=== PATIENT | female | born 1975 | race Two or more races ===

== ENCOUNTER 2024-03-18 21:13 | Inpatient (IN) | payer OTHER ==
--- NOTE | 2024-03-18 21:48 | ED ---
SOB HPI - General Chief Complaint: Shortness of Breath Stated Complaint: COPD Time Seen by Provider: 03/18/24 21:30 Source: patient, EMS Mode of arrival: EMS Limitations: no limitations - History of Present Illness Initial Comments: 49-year-old female who presents to the emergency department as a transfer from [facility]. She was taken in their by EMS for shortness of breath and hypoxia. She has a history of COPD and has not had her medications for months. She moved here from [place]. Pulse ox was 75%. She had wheezing, cough with yellow phlegm production. No fevers. Admits chest pain. Chest x-ray demonstrates diffuse bronchial wall thickening diffuse bronchovascular prominence was given a dose of hydralazine, Toradol, Xopenex, magnesium Zithromax and transferred for higher levels of care. - Related Data Home Medications Medication Instructions Recorded Confirmed Albuterol Sulfate [Ventolin HFA] 2 puff INHALATION RT-QID PRN 03/19/24 03/19/24 Budesonide/Formoterol Fumarate 2 puff INHALATION RT-BID 03/19/24 03/19/24 [Symbicort 160-4.5 Mcg Inhaler] Tiotropium [place] [Spiriva 1 cap INHALATION RT-DAILY 03/19/24 03/19/24 Handihaler] Previous Rx's Medication Instructions Recorded Furosemide [Lasix] 40 mg PO DAILY 30 Days #30 tab 03/22/24 Nicotine 21Mg/24Hr Patch [Habitrol] 1 patch TRANSDERM DAILY 30 Days 03/22/24 #30 patch amLODIPine [Norvasc] 5 mg PO DAILY 30 Days #30 tab 03/22/24 predniSONE See Taper PO DIRECTED 12 Days 03/22/24 #30 tab Allergies Allergy/AdvReac Type Severity Reaction Status Date / Time Penicillins Allergy Severe Anaphylaxis Verified 03/19/24 12:55 Review of Systems ROS Statement: Those systems with pertinent positive or pertinent negative responses have been documented in the HPI. ROS Other: All systems not noted in ROS Statement are negative. Past Medical History Past Medical History: Asthma, Heart Failure, COPD, Hypertension, Rheumatoid Arthritis (RA) Additional Past Medical History / Comment(s): CURRENTLY HAS A COLD. 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 History of Any Multi-Drug Resistant Organisms: None Reported Past Surgical History: Adenoidectomy, Cholecystectomy, Joint Replacement, Orthopedic Surgery, Tonsillectomy, Tubal Ligation Additional Past Surgical History / Comment(s): RIGHT SHOULDER SURGERY. 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 RIGHT ANKLE SURGERY. Additional Past Anesthesia/Blood Transfusion Reaction / Comment(s): STOPPED BREATHING WITH ANESTHETICS? Past Psychological History: Anxiety Smoking Status: Current every day smoker Past Alcohol Use History: None Reported Past Drug Use History: None Reported - Past Family History Mother Family Medical History: Asthma, COPD, Myocardial Infarction ([place]) Brother(s) Family Medical History: Renal Disease General Exam Limitations: no limitations General appearance: alert, in no apparent distress Head exam: Present: atraumatic, normocephalic, normal inspection Eye exam: Present: normal appearance, PERRL, EOMI. Absent: scleral icterus, conjunctival injection, periorbital swelling ENT exam: Present: normal exam, mucous membranes moist Neck exam: Present: normal inspection. Absent: tenderness, meningismus, lymphadenopathy Respiratory exam: Present: normal lung sounds bilaterally, decreased breath sounds. Absent: respiratory distress, wheezes, rales, rhonchi, stridor Cardiovascular Exam: Present: regular rate, normal rhythm, normal heart sounds. Absent: systolic murmur, diastolic murmur, rubs, gallop, clicks GI/Abdominal exam: Present: soft, normal bowel sounds. Absent: distended, tenderness, guarding, rebound, rigid Extremities exam: Present: normal inspection, full ROM, normal capillary refill. Absent: tenderness, pedal edema, joint swelling, calf tenderness Back exam: Present: normal inspection Neurological exam: Present: alert, oriented X3, CN II-XII intact Psychiatric exam: Present: normal affect, normal mood Skin exam: Present: warm, dry, intact, normal color. Absent: rash Course Vital Signs 03/18/24 03/18/24 03/18/24 21:27 21:34 22:18 Temperature 97.8 F Pulse Rate 94 86 87 Respiratory 20 20 20 Rate Blood Pressure 144/85 122/69 150/60 O2 Sat by Pulse 93 L 93 L 93 L Oximetry 03/18/24 22:33 Temperature Pulse Rate 75 Respiratory Rate Blood Pressure O2 Sat by Pulse Oximetry Medical Decision Making - Medical Decision Making Was pt. sent in by a medical professional or institution (, PA, [employer] L[employer], urgent care, hospital, or snf...) When possible be specific @ -Patient was sent in from [facility] Did you speak to anyone other than the patient for history (EMS, parent, family, police, friend...)? What history was obtained from this source @ -I spoke with EMS and the transferring physician in regards to what has been done on the patient Did you review nursing and triage notes (agree or disagree)? Why? @ -I reviewed and agree with nursing and triage notes Were old charts reviewed (outside hosp., previous admission, EMS record, old EKG, old radiological studies, urgent care reports/EKG's, snf records)? Report findings @ -I reviewed the records that were sent with the patient from [facility] Differential Diagnosis (chest pain, altered mental status, abdominal pain women, abdominal pain men, vaginal bleeding, weakness, fever, dyspnea, syncope, headache, dizziness, GI bleed, back pain, seizure, CVA, palpatations, mental h ealth, musculoskeletal)? @ -Differential Dyspnea: Coronary syndrome, arrhythmia, tamponade, asthma, COPD, pulmonary embolism, pneumonia, pneumothorax, pulmonary effusion, anaphylaxis, diabetic ketoacidosis, flailed chest, pulmonary contusion, diaphragmatic rupture, anemia, neuromuscular, this is not meant to be an all-inclusive list. EKG interpreted by me (3pts min.). @ -Not completed X-rays interpreted by me (1pt min.). @ -None done CT interpreted by me (1pt min.). @ -None done U/S interpreted by me (1pt. min.). @ -None done What testing was considered but not performed or refused? (CT, X-rays, U/S, labs)? Why? @ -EKG and chest x-ray were considered however patient already had this done at [facility] What meds were considered but not given or refused? Why? @ -None Did you discuss the management of the patient with other professionals (professionals i.e. , PA, [employer], lab, RT, psych nurse, social service agency director, medical laboratory assistant, teacher, commercial loan collection officer, patient case coordinator)? Give summary @ -Spoke with Dr. Cade for admission Was smoking cessation discussed for >3mins.? @ -No Was critical care preformed (if so, how long)? @ -No Were there social determinants of health that impacted care today? How? (Homelessness, low income, unemployed, alcoholism, drug addiction, transportation, low edu. Level, literacy, decrease access to med. care, ch[facility], rehab)? @ -No Was there de-escalation of care discussed even if they declined (Discuss DNR or withdrawal of care, Hospice)? DNR status @ -No What co-morbidities impacted this encounter? (DM, HTN, Smoking, COPD, CAD, Cancer, CVA, ARF, Chemo, Hep., AIDS, mental health diagnosis, sleep apnea, morbid obesity)? @ -Tobacco abuse, COPD Was patient admitted / discharged? Hospital course, mention meds given and route, prescriptions, significant lab abnormalities, going to OR and other pertinent info. @ -Upon arrival patient seen and evaluated in room 6. Thorough history and physical exam was performed. I did review the transfer packet. Patient will be admitted to Dr. Sexton. Breathing treatments and steroids ordered. I also ordered an echo. Patient awaiting a bed on the floor in stable condition Undiagnosed new problem with uncertain prognosis? @ -No Drug Therapy requiring intensive monitoring for toxicity (Heparin, Nitro, Insulin, Cardizem)? @ -No Were any procedures done? @ -No Diagnosis/symptom? @ -Acute hypoxic respiratory failure, acute exacerbation of COPD Acute, or Chronic, or Acute on Chronic? @ -Acute Uncomplicated (without systemic symptoms) or Complicated (systemic symptoms)? @ -Complicated Side effects of treatment? @ -No Exacerbation, Progression, or Severe Exacerbation? @ -Yes Poses a threat to life or bodily function? How? (Chest pain, [place], [place], pneumonia, PE, COPD, DKA, ARF, appy, cholecystitis, CVA, Diverticulitis, Homicidal, Suicidal, threat to staff... and all critical care pts) @ -Yes as patient was hypoxic - Lab Data Result diagrams: 03/22/24 09:10 03/22/24 09:10 Lab Results 03/19/24 03/19/24 03/19/24 Range/Units 05:07 05:07 05:14 WBC 13.0 H (3.8-10.6) k/uL RBC 5.22 (3.80-5.40) m/uL Hgb 14.3 (11.4-16.0) gm/dL Hct 48.8 H (34.0-46.0) % MCV 93.4 (80.0-100.0) fL MCH 27.5 (25.0-35.0) pg MCHC 29.4 L (31.0-37.0) g/dL RDW 16.1 H (11.5-15.5) % Plt Count 209 (150-450) k/uL MPV 8.9 Absolute Nucleated RBC % Neutrophils % 94 % Lymphocytes % 4 % Monocytes % 2 % Eosinophils % 0 % Basophils % 0 % Neutrophils # 12.2 H (1.3-7.7) k/uL Lymphocytes # 0.5 L (1.0-4.8) k/uL Monocytes # 0.2 (0-1.0) k/uL Eosinophils # 0.1 (0-0.7) k/uL Basophils # 0.1 (0-0.2) k/uL NRBC/100 WBC Diff (0.00-0.01) X 10*3/uL Hypochromasia Marked Anisocytosis Slight Sodium 138 (137-145) mmol/L Potassium 5.2 H (3.5-5.1) mmol/L Chloride 104 (98-107) mmol/L Carbon Dioxide 29 (22-30) mmol/L Anion Gap 5 mmol/L BUN 15 (7-17) mg/dL Creatinine 0.59 (0.52-1.04) mg/dL Est GFR (CKD-EPI) (>=60) Est GFR (CKD-EPI)AfAm >90 (>60 ml/min/1.73 sqM) Est GFR (CKD-EPI)NonAf >90 (>60 ml/min/1.73 sqM) BUN/Creatinine Ratio (12.00-20.00) Ratio Glucose 131 H (74-99) mg/dL Calcium 8.5 (8.4-10.2) mg/dL Magnesium (1.5-2.4) mg/dL Procalcitonin 0.08 (0.02-0.09) ng/mL 03/20/24 03/20/24 03/20/24 Range/Units 05:03 05:03 11:06 WBC 15.34 H (3.8-10.6) k/uL RBC 5.20 (3.80-5.40) m/uL Hgb 14.1 (11.4-16.0) gm/dL Hct 50.9 H (34.0-46.0) % MCV 97.9 H (80.0-100.0) fL MCH 27.1 (25.0-35.0) pg MCHC 27.7 L (31.0-37.0) g/dL RDW 17.2 H (11.5-15.5) % Plt Count 211 (150-450) k/uL MPV 11.5 Absolute Nucleated RBC 0.50 % Neutrophils % % Lymphocytes % % Monocytes % % Eosinophils % % Basophils % % Neutrophils # (1.3-7.7) k/uL Lymphocytes # (1.0-4.8) k/uL Monocytes # (0-1.0) k/uL Eosinophils # (0-0.7) k/uL Basophils # (0-0.2) k/uL NRBC/100 WBC Diff 0.08 H (0.00-0.01) X 10*3/uL Hypochromasia Anisocytosis Sodium 138 (137-145) mmol/L Potassium 6.1 A* 5.9 H (3.5-5.1) mmol/L Chloride 99 (98-107) mmol/L Carbon Dioxide 31.1 (22-30) mmol/L Anion Gap 7.90 mmol/L BUN 17.6 (7-17) mg/dL Creatinine 0.6 (0.52-1.04) mg/dL Est GFR (CKD-EPI) 111 (>=60) Est GFR (CKD-EPI)AfAm (>60 ml/min/1.73 sqM) Est GFR (CKD-EPI)NonAf (>60 ml/min/1.73 sqM) BUN/Creatinine Ratio 29.33 H (12.00-20.00) Ratio Glucose 140 H (74-99) mg/dL Calcium 9.0 (8.4-10.2) mg/dL Magnesium 2.3 (1.5-2.4) mg/dL Procalcitonin (0.02-0.09) ng/mL Disposition Clinical Impression: COPD (chronic obstructive pulmonary disease), Hypoxia Disposition: ADMITTED IP TO THIS [facility] Condition: Stable Is patient prescribed a controlled substance at d/c from ED?: No Time of Disposition: 22:18 Decision to Admit Reason: Admit from EC Decision Date: 03/18/24 Decision Time: 22:18
[2024-03-18] MEDS ORDERED: NALOXONE 0.4 MG/ML 1 ML VIAL IV PRN (22:18)
[2024-03-18] MEDS: IPRATROPIUM-ALBUTEROL 3 ML NEB INHALATION STA (22:18)
[2024-03-18] MEDS ORDERED: IPRATROPIUM-ALBUTEROL 3 ML NEB INHALATION PRN (23:51)
--- NOTE | 2024-03-18 23:59 | P.HPIM ---
History of Present Illness H&P Date: 03/18/24 Chief Complaint: Shortness of breath 49-year-old female with COPD on 4 L oxygen, lupus, narcolepsy Patient was transferred from [facility] to our facility for management of COPD exacerbation. Patient reports 3-day history of progressive shortness of breath and increased sleepiness. Denies any fevers or chills, denies any recent travel, denies any known sick contacts. She lost follow-up with her PCP due to missing an appointment and being discharged from her care, which led to running out of her medications she cannot find a new PCP she has been out of all her medications for over a month now. She had some leftover inhalers that she has been using however was not much beneficial today She reports shortness of breath with minimal exertion she denies any cardiac history. Denies any swelling in the legs. She reports history of narcolepsy with increased sleepiness over the past few days today she felt very short of breath and cannot maintain alertness and wakefulness for which EMS was notified upon their arrival the documented oxygen saturation of 75% despite supplemental oxygen for which she was transferred to our facility [facility] for further care Patient does admit to ongoing smoking denies any illicit drugs or heavy alcohol At time of my evaluation patient feels better she is sitting comfortable in bed fully awake and alert denies any chest pain or trouble breathing at this time review of systems Pertinent positives as noted in HPI. All other systems were reviewed and are negative on exam Constitutional: No acute distress, morbidly obese Eyes: Anicteric sclerae, moist conjunctiva, Pupils equal round reactive to light ENMT: NC/AT Oropharynx clear, no erythema, or exudates Neck: Supple, no masses, or JVD No carotid bruits No thyromegaly Lungs: Clear to auscultation Clear to percussion Normal respiratory effort, no accessory muscle use Cardiovascular: Heart regular in rate and rhythm, No murmurs, gallops, or rubs No peripheral edema Abdominal: Soft Nontender, no guarding, rebound or rigidity Abdomen moving with respiration Normoactive bowel sounds Extremities: No digital cyanosis No clubbing Pedal pulses intact and symmetrical Radial pulses intact and symmetrical No calf tenderness Psychiatric: Alert and oriented to person, place and time Appropriate affect fair judgement Neuro Muscles Strength 4/5 in all 4 extremities Sensation to light touch grossly present throughout Cranial nerves II-XII grossly intact Past Medical History Past Medical History: Asthma, Cancer, Heart Failure, COPD, Hypertension, Liver Disease, Rheumatoid Arthritis (RA) Additional Past Medical History / Comment(s): CURRENTLY HAS A COLD. 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 possible ovarian cancer, patient unsure. fatty liver. Lupus. one kidney History of Any Multi-Drug Resistant Organisms: None Reported Past Surgical History: Adenoidectomy, Cholecystectomy, Joint Replacement, Orthopedic Surgery, Tonsillectomy, Tubal Ligation Additional Past Surgical History / Comment(s): RIGHT SHOULDER SURGERY. 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 RIGHT ANKLE SURGERY. Additional Past Anesthesia/Blood Transfusion Reaction / Comment(s): STOPPED BREATHING WITH ANESTHETICS? Past Psychological History: Anxiety Additional Psychological History / Comment(s): "NERVOUS AROUND PEOPLE I DON'T KNOW". Smoking Status: Current every day smoker Past Alcohol Use History: None Reported Past Drug Use History: None Reported - Past Family History Mother Family Medical History: Asthma, COPD, Myocardial Infarction ([place]) Brother(s) Family Medical History: Renal Disease Medications and Allergies Home Medications Medication Instructions Recorded Confirmed Type Albuterol Nebulized [Ventolin 2.5 mg INHALATION TID 02/17/16 02/17/16 History Nebulized] Hydrocodone/Acetaminophen [Powell 1 tab PO DIRECTED 02/17/16 02/17/16 History 10-325] Ibuprofen [Motrin] 600 mg PO DIRECTED PRN 02/17/16 02/17/16 History clonazePAM [Clonazepam] 1 mg PO BID 02/17/16 02/17/16 History methocarbamoL [Robaxin] 1,500 mg PO BID 02/17/16 02/17/16 History Allergies Allergy/AdvReac Type Severity Reaction Status Date / Time Penicillins Allergy Severe Anaphylaxis Verified 03/18/24 21:35 Physical Exam Vitals: Vital Signs Temp Pulse Resp BP Pulse Ox 03/18/24 22:33 75 03/18/24 22:18 87 20 150/60 93 L 03/18/24 21:34 86 20 122/69 93 L 03/18/24 21:27 97.8 F 94 20 144/85 93 L Intake and Output 03/18/24 03/18/24 03/19/24 14:59 22:59 06:59 Other: Weight 161.025 kg 161.025 kg Thrombosis Risk Factor Assmnt - Choose All That Apply Each Factor Represents 1 point: Abnormal pulmonary function (COPD), Age 41-60 years, Obesity (BMI >25) Thrombosis Risk Factor Assessment Total Risk Factor Score: 3 Thrombosis Risk Factor Assessment Level: Moderate Risk Assessment and Plan Assessment: 49-year-old female COPD on 4 L nasal cannula coming in due to worsening shortness of breath she has been out of all her medications for about a month now was transferred to our facility from [facility] for further care I discussed the case with ED doctor and accepted the admission for acute COPD exacerbation with anticipated length of stay more than 2 midnights Acute on chronic hypoxic respiratory failure Acute COPD exacerbation ABG was not documented at the other facility Patient is fully alert and awake at time of my evaluation Continue supplemental oxygen Continue with Symbicort twice daily DuoNebs scheduled and as needed IV systemic steroids with Solu-Medrol 40 mg IV push every 8 hours Patient was started on antibiotic at [facility] with Rocephin and azithromycin due to suspicious changes on chest x-ray for possible pneumonia Continue to monitor vital signs Afebrile White count 12.2 Hypertension Verify home medications Blood pressure controlled at this time History of narcolepsy Patient fully awake at time of my evaluation Verify home medications Blood work from [facility] showing white count 12.2 hemoglobin 14.6 Sodium 142 potassium 4.1 BUN 13 creatinine 0.8 Troponin is negative BMP negative Full code DVT prophylaxis heparin subcu 3 times daily
[2024-03-19] MEDS: MORPHINE SULFATE 4 MG/ML SYRINGE IV PRN (00:14)
[2024-03-19] MEDS: HEPARIN SODIUM,PORCINE 5,000 UNIT/ML 1 ML VIAL SQ SCH (00:16)
[2024-03-19] MEDS: IPRATROPIUM-ALBUTEROL 3 ML NEB INHALATION SCH ×2 (00:25→08:45)
[2024-03-19 05:35] LABS: Anisocytosis Slight; Basophils # (A) 0.1 k/uL (0-0.2); Basophils % (A) 0 %; Eosinophils # (A) 0.1 k/uL (0-0.7); Eosinophils % (A) 0 %; HCT 48.8 % (34.0-46.0); HGB 14.3 gm/dL (11.4-16.0); Hypochromasia Marked; Lymphocytes # (A) 0.5 k/uL (1.0-4.8); Lymphocytes % (A) 4 %; MCH 27.5 pg (25.0-35.0); MCHC 29.4 g/dL (31.0-37.0); MCV 93.4 fL (80.0-100.0); Mean Platelet Volume 8.9; Monocytes # (A) 0.2 k/uL (0-1.0); Monocytes % (A) 2 %; Neutrophils # (A) 12.2 k/uL (1.3-7.7); Neutrophils % (A) 94 %; Platelet Count 209 k/uL (150-450); RBC 5.22 m/uL (3.80-5.40); RDW 16.1 % (11.5-15.5)
[2024-03-19 05:51] LABS: African American GFR (CKD) >90 (>60 ml/min/1.73 sqM); Anion Gap 5 mmol/L; Blood Urea Nitrogen 15 mg/dL (7-17); Calcium 8.5 mg/dL (8.4-10.2); Carbon Dioxide 29 mmol/L (22-30); Chloride 104 mmol/L (98-107); Glucose 131 mg/dL (74-99); Non-African American GFR(CKD) >90 (>60 ml/min/1.73 sqM); Potassium 5.2 mmol/L (3.5-5.1); Sodium 138 mmol/L (137-145)
[2024-03-19] MEDS: BENZONATATE 100 MG CAP PO PRN (08:19)
[2024-03-19] MEDS: methylPREDNISolone SOD SUCCI 40 MG/ML 1 ML VIAL IV SCH (08:20)
[2024-03-19] MEDS: NICOTINE 21MG/24HR PATCH TRANSDERM SCH (08:20)
[2024-03-19] MEDS: SYMBICORT 160-4.5 MCG INHALER INHALATION SCH (08:45)
--- NOTE | 2024-03-19 08:51 | P.CNPUL ---
History of Present Illness Consult date: 03/19/24 Requesting physician: Sue Cade Reason for consult: dyspnea, cough, COPD, hypoxemia, obstructive sleep apnea Chief complaint: Shortness of breath. History of present illness: Pulmonary/critical care consult dated March 19, 2024. 49-year-old female who was transferred from [facility], for shortness of breath. She was seen in the emergency department, on March 18, at about 9:15 o'clock. This was on March 18. The patient came in with complaints of shortness of breath, and states that she could not breathe. She apparently recently moved here from [place], and has no physician in the area. She also apparently has been running out of her usual medications. The patient tells us that she has a history of COPD, chronic hypoxemic respiratory failure, on home oxygen of 4 L, ongoing tobacco use, for 30 years, hypertension, obesity, and narcolepsy. The patient was initially on CPAP, and has a trilogy noninvasive ventilator at home. Her complaints include primarily shortness of breath. She really denied other complaints. She had no inhalers, or medication for her nebulizer machine. Laboratory data includes a white count 13, hemoglobin 14.3, hematocrit 48.8, and a platelet count of 209,000. Sodium 138, potassium 5.2, chlorides 104, CO2 29, BUN 15, creatinine 0.59. Glucose was 131. Calcium was normal. No chest x-ray to review. The patient is sitting up in bed. She is currently on 4 L which is what she uses at home. Review of Systems REVIEW OF SYSTEMS: CONSTITUTIONAL: [Negative.] NEUROLOGIC: [ Negative.] HEENT: [ Negative.] CARDIAC: [Negative.] PULMONARY: Shortness of breath. GI: [Negative.] : [Negative.] RHEUMATOLOGIC: [ Negative.] IMMUNOLOGIC: [ Negative.] ENDOCRINE: [Negative. ] DERMATOLOGIC: [Negative.] Past Medical History Past Medical History: Asthma, Cancer, Heart Failure, COPD, Hypertension, Liver Disease, Rheumatoid Arthritis (RA) Additional Past Medical History / Comment(s): CURRENTLY HAS A COLD. 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 possible ovarian cancer, patient unsure. fatty liver. Lupus. one kidney History of Any Multi-Drug Resistant Organisms: None Reported Past Surgical History: Adenoidectomy, Cholecystectomy, Joint Replacement, Orthopedic Surgery, Tonsillectomy, Tubal Ligation Additional Past Surgical History / Comment(s): RIGHT SHOULDER SURGERY. 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 RIGHT ANKLE SURGERY. Additional Past Anesthesia/Blood Transfusion Reaction / Comment(s): STOPPED BREATHING WITH ANESTHETICS? Past Psychological History: Anxiety Additional Psychological History / Comment(s): "NERVOUS AROUND PEOPLE I DON'T KNOW". Smoking Status: Current every day smoker Past Alcohol Use History: None Reported Past Drug Use History: None Reported - Past Family History Mother Family Medical History: Asthma, COPD, Myocardial Infarction ([place]) Brother(s) Family Medical History: Renal Disease Medications and Allergies Home Medications Medication Instructions Recorded Confirmed Type Albuterol Nebulized [Ventolin 2.5 mg INHALATION TID 02/17/16 02/17/16 History Nebulized] Hydrocodone/Acetaminophen [[place]urchard 1 tab PO DIRECTED 02/17/16 02/17/16 History 10-325] Ibuprofen [Motrin] 600 mg PO DIRECTED PRN 02/17/16 02/17/16 History clonazePAM [Clonazepam] 1 mg PO BID 02/17/16 02/17/16 History methocarbamoL [Robaxin] 1,500 mg PO BID 02/17/16 02/17/16 History Allergies Allergy/AdvReac Type Severity Reaction Status Date / Time Penicillins Allergy Severe Anaphylaxis Verified 03/18/24 21:35 Physical Exam Osteopathic Statement: *. No significant issues noted on an osteopathic structural exam other than those noted in the History and Physical/Consult. Vitals: Vital Signs Temp Pulse Pulse Resp BP BP Pulse Ox 03/19/24 07:00 98.1 F 109 H 20 162/84 93 L 03/19/24 03:19 03/19/24 02:08 97.4 F L 79 20 118/69 94 L 03/19/24 00:44 03/19/24 00:28 76 03/18/24 22:33 75 03/18/24 22:18 87 20 150/60 93 L 03/18/24 21:34 86 20 122/69 93 L 03/18/24 21:27 97.8 F 94 20 144/85 93 L FiO2 03/19/24 07:00 03/19/24 03:19 40 03/19/24 02:08 03/19/24 00:44 40 03/19/24 00:28 03/18/24 22:33 03/18/24 22:18 03/18/24 21:34 03/18/24 21:27 Intake and Output 03/18/24 03/19/24 03/19/24 22:59 06:59 14:59 Other: # Voids 3 Weight 161.025 kg 161.025 kg No acute distress, oriented 3. Currently on 4 L. No audible wheezing. No conversational dyspnea. No use of accessory muscles. HEENT examination is grossly unremarkable. Mucous membranes are moist. No oral lesions. Neck supple. Full range of motion. No adenopathy thyromegaly or neck vein distention. Cardiovascular examination reveals regular rhythm rate. S1-S2 normal. No S3 or S4. No discernible murmur noted. Heart sounds are distant. Heart rate 83 bpm. Lungs reveal mostly clear breath sounds. Minimal rhonchi. No wheezes or crackles. Breath sounds equal bilaterally. 4 L saturation is 94%. Abdomen soft with bowel sounds. No masses or tenderness. Extremities are intact. No cyanosis clubbing or edema. Skin is without rash or lesion. Neurologic examination is brief but nonfocal. Results - Laboratory Findings CBC and BMP: 03/19/24 05:07 03/19/24 05:07 Abnormal lab findings: Abnormal Labs 03/19/24 03/19/24 05:07 05:07 WBC 13.0 H Hct 48.8 H MCHC 29.4 L RDW 16.1 H Neutrophils # 12.2 H Lymphocytes # 0.5 L Potassium 5.2 H Glucose 131 H Assessment and Plan Assessment: Acute hypoxemic respiratory failure, likely secondary to COPD exacerbation. Chronic hypoxemic respiratory failure on home O2 at 4 L. History of narcolepsy. History of sleep apnea syndrome. History of hypertension. History of obesity. History of ongoing tobacco use for the last 30 years. Plan: Plan dated March 19, 2024. The patient is currently on DuoNebs, 4 times daily and as needed. She is also getting Tessalon Perles, Symbicort, Rocephin, azithromycin, and Solu-Medrol. The Patient Is Sitting up in Bed. She Looks Relatively Stable. She Feels Much Better. A procalcitonin level is ordered. If it is normal, antibiotics could be discontinued. Labs are reviewed. They look relatively normal. We will continue to follow make recommendations along the way. Prognosis is guarded. The patient does need to establish yourself with a family doctor in this area. She apparently has run out of multiple medications. Time with Patient: Greater than 30
[2024-03-19] MEDS ORDERED: cefTRIAXone IN SWFI 1,000 MG/10 ML SYRINGE IVP SCH (09:00)
--- NOTE | 2024-03-19 09:35 | P.PN ---
Subjective Progress Note Date: 03/19/24 Hospital course: Patient is a pleasant 49-year-old female with a past medical history of COPD home oxygen dependent on 4 L and continued nicotine dependence, lupus, and narcolepsy. She presented to our facility on 03/18/2024 as a transfer from [facility] where she presented with increasing shortness of breath and was reportedly found to have an SpO2 of 75% on her baseline supplemental oxygen and was then transferred to our facility secondary to COPD exacerbation. Chest x-ray at previous facility reported diffuse bronchial wall thickening with diffuse bronchovascular prominence. Upon arrival to our facility patient underwent evaluation in the emergency department. Vital signs upon arrival show blood pressure 144/85, heart rate 94, respiratory rate 20, temp 97.8 F, and SpO2 of 93% on 4 L. Labs were completed and reviewed. CBC showing leukocytosis with WBC count of 13.0 and elevated hematocrit of 48.8. BMP revealing mild hyperkalemia with potassium of 5.2 and hyperglycemia with glucose of 131. Patient was admitted under our services with consultation to pulmonology. Physical exam: Vital signs reviewed and stable. General: Nontoxic, no distress and appears stated age. Morbidly obese. Derm: Skin warm and dry, normal coloration for ethnicity. Head: Atraumatic, normocephalic and symmetric. Eyes: EOMs intact, no lid lag, and anicteric sclera Mouth: no lip lesions, mucus membranes moist Cardiovascular: regular rate and rhythm with normal S1S2, no murmur, positive posterior tibial pulses bilaterally, and cap refill < 2 seconds. Lungs: Respirations even, regular, and unlabored on supplemental oxygen. Lungs diminished with soft expiratory wheezes in upper lobes otherwise no rhonchi, rales, or crackles noted. Abdominal: Obese abdomen, soft, nontender to palpation, no guarding, no appreciable organomegaly Ext: ROM intact. No gross muscle atrophy, no edema, no contractures Neuro: Speech clear, face symmetrical and CN II-XII grossly intact with no noted focal neuro deficits Psych: Alert and oriented to person, place, time, and situation. Appropriate and pleasant affect. Assessment and Plan of Care: COPD with acute exacerbation Acute on chronic respiratory failure, secondary to above Continued nicotine dependence -Consult to Pulmonology -Oxygenation to be administered and titrated as needed to maintain SPO2 equal to or greater than 90% -Telemetry monitoring. -Monitor pulse-oximetry -Duonebs scheduled 4 times daily and as needed for SOB and/or wheezing -Symbicort 160-4.5 mcg inhaler 2 puffs twice daily -Incentive Spirometry -Steroids: Solu-Medrol 40 mg IVP every 8 hours -Antibiotics: Azithromycin 500 mg daily x 3 days and Rocephin 1 g daily. Procalcitonin was ordered and we will follow-up with results. -Strongly recommend smoking cessation, order placed for nicotine patch 21 mg daily. Data and imaging reviewed: Labs were completed and reviewed. CBC showing leukocytosis with WBC count of 13.0 and elevated hematocrit of 48.8. BMP revealing mild hyperkalemia with potassium of 5.2 and hyperglycemia with glucose of 131. Vital signs reviewed. Blood pressure 162/84, heart rate 109, respiratory rate 20, temp 98.1 F, and SpO2 of 93% on 4 L.. CODE STATUS full code DVT prophylaxis: Heparin Anticipated discharge date: Likely within the next [address]: Home Patient was seen independently by Nurse Pracitioner. This document was prepared using [employer] dictation software. Please allow for errors in supermarket manager, while rare they do occur. Elder Noyola NP rendered care for this patient independently, reviewed the findings and plan as documented in the note above. I did not physically speak with or examine the patient on this date. Objective - Vital Signs Vital signs: Vital Signs Temp 97.4 F L 03/19/24 02:08 Pulse 79 03/19/24 02:08 Resp 20 03/19/24 02:08 BP 118/69 03/19/24 02:08 Pulse Ox 94 L 03/19/24 02:08 FiO2 40 03/19/24 03:19 Intake & Output 03/18/24 03/19/24 03/19/24 18:59 06:59 18:59 Weight 161.025 kg Other: # Voids 3 - Labs CBC & Chem 7: 03/20/24 05:03 03/20/24 11:06 Labs: Abnormal Lab Results - Last 24 Hours (Table) 03/19/24 03/19/24 Range/Units 05:07 05:07 WBC 13.0 H (3.8-10.6) k/uL Hct 48.8 H (34.0-46.0) % MCHC 29.4 L (31.0-37.0) g/dL RDW 16.1 H (11.5-15.5) % Neutrophils # 12.2 H (1.3-7.7) k/uL Lymphocytes # 0.5 L (1.0-4.8) k/uL Potassium 5.2 H (3.5-5.1) mmol/L Glucose 131 H (74-99) mg/dL
[2024-03-19] MEDS: AZITHROMYCIN 500 MG in SODIUM CHLORIDE 0.9% 250 ML IVPB SCH (11:00)
[2024-03-19] MEDS: ACETAMINOPHEN TAB 325 MG TAB PO PRN (17:30)
[2024-03-19] MEDS: ONDANSETRON 4 MG/2 ML VIAL IVP PRN (23:30)
[2024-03-20 09:14] LABS: Magnesium 2.3 mg/dL (1.5-2.4)
[2024-03-20 09:41] LABS: HCT 50.9 % (37.2-46.3); HGB 14.1 g/dL (12.0-15.0); MCH 27.1 pg (27.0-32.0); MCHC 27.7 g/dL (32.0-37.0); MCV 97.9 FL (80.0-97.0); Mean Platelet Volume 11.5 FL (9.5-12.2); NRBC Per 100 WBC 0.08 X 10*3/uL (0.00-0.01); Platelet Count 211 X 10*3/uL (140-440); RDW 17.2 % (11.5-14.5); WBC 15.34 X 10*3/uL (4.50-10.00)
[2024-03-20 09:42] LABS: BUN/Creat Ratio 29.33 Ratio (12.00-20.00); Blood Urea Nitrogen 17.6 mg/dL (9.0-27.0); Carbon Dioxide 31.1 mmol/L (21.6-31.8); Chloride 99 mmol/L (96-109); Glucose 140 mg/dL (70-110); Potassium 6.1 mmol/L (3.5-5.5); Sodium 138 mmol/L (135-145)
[2024-03-20] MEDS ORDERED: DEXTROSE 50% SYRINGE 50 ML IVP PRN ×2 (10:09)
--- NOTE | 2024-03-20 10:49 | P.PN ---
Subjective Progress Note Date: 03/20/24 Hospital course: Patient is a pleasant 49-year-old female with a past medical history of COPD home oxygen dependent on 4 L and continued nicotine dependence, lupus, and narcolepsy. She presented to our facility on 03/18/2024 as a transfer from [facility] where she presented with increasing shortness of breath and was reportedly found to have an SpO2 of 75% on her baseline supplemental oxygen and was then transferred to our facility secondary to COPD exacerbation. Chest x-ray at previous facility reported diffuse bronchial wall thickening with diffuse bronchovascular prominence. Upon arrival to our facility patient underwent evaluation in the emergency department. Vital signs upon arrival show blood pressure 144/85, heart rate 94, respiratory rate 20, temp 97.8 F, and SpO2 of 93% on 4 L. Labs were completed and reviewed. CBC showing leukocytosis with WBC count of 13.0 and elevated hematocrit of 48.8. BMP revealing mild hyperkalemia with potassium of 5.2 and hyperglycemia with glucose of 131. Patient was admitted under our services with consultation to pulmonology. Physical exam: Vital signs reviewed and stable. General: Nontoxic, no distress and appears stated age. Morbidly obese. Derm: Skin warm and dry, normal coloration for ethnicity. Head: Atraumatic, normocephalic and symmetric. Eyes: EOMs intact, no lid lag, and anicteric sclera Mouth: no lip lesions, mucus membranes moist Cardiovascular: regular rate and rhythm with normal S1S2, no murmur, positive posterior tibial pulses bilaterally, and cap refill < 2 seconds. Lungs: Respirations even, regular, and unlabored on supplemental oxygen. Lungs diminished with soft expiratory wheezes in upper lobes otherwise no rhonchi, rales, or crackles noted. Abdominal: Obese abdomen, soft, nontender to palpation, no guarding, no appreciable organomegaly Ext: ROM intact. No gross muscle atrophy, no edema, no contractures Neuro: Speech clear, face symmetrical and CN II-XII grossly intact with no noted focal neuro deficits Psych: Alert and oriented to person, place, time, and situation. Appropriate and pleasant affect. Assessment and Plan of Care: COPD with acute exacerbation Acute on chronic respiratory failure, secondary to above Continued nicotine dependence -Pulmonary following, reviewed documentation in chart -Oxygenation to be administered and titrated as needed to maintain SPO2 equal to or greater than 90% -Telemetry monitoring. -Monitor pulse-oximetry -Duonebs scheduled 4 times daily and as needed for SOB and/or wheezing -Symbicort 160-4.5 mcg inhaler 2 puffs twice daily -Incentive Spirometry -Steroids: Solu-Medrol 40 mg IVP every 8 hours -Antibiotics: Azithromycin 500 mg daily x 3 days and Rocephin 1 g daily. -Strongly recommend smoking cessation, order placed for nicotine patch 21 mg daily. Hyperkalemia, unclear etiology possibly secondary to heparin-induced hypoaldosteronism vs unexplained hyperkalemia secondary to systemic lupus erythematous Systemic Lupus Erythematous -Hyperkalemia of unclear etiology possibly secondary to unexplained hyperkalemia resulting from systemic lupus erythematous vs heparin-induced hypoaldosteronism, however sodium levels are stable at 138 and blood pressure is elevated at 169/97. -Subcutaneous heparin discontinued, DVT prophylaxis with SCDs and NATASHA hose at this time. -Order placed for hyperkalemia cocktail with Lokelma 10 mg p.o. x 1 dose, calcium gluconate 2 g IVPB, and insulin 10 units IVP with 1 amp D50. We will repeat potassium levels to monitor for improvement/resolution of hyperkalemia -Order placed for EKG, monitor for peaked P waves -Order placed for nephrology consult for further evaluation of hyperkalemia secondary to unclear cause Data and imaging reviewed: Labs were completed and reviewed. CBC showing leukocytosis with WBC count of 15.34, elevated hematocrit of 50.9 and MCV of 97.9. BMP showing hyperkalemia with potassium of 6.1 and not a hemolyzed specimen. Renal function was unremarkable with BUN of 17.6, creatinine 0.6, GFR of 111. Blood glucose 140. Magnesium normal findings at 2.3 and calcium normal at 9.0. Procalcitonin was negative at 0.08. Vital signs reviewed. Blood pressure 169/97, heart rate 116, respiratory rate 19, temp 97.2 F, and SpO2 of 92% on 4 L. CODE STATUS full code DVT prophylaxis: Heparin Anticipated discharge date: Pending clinical course Anticipated discharge place: Home Patient was seen independently by Nurse Pracitioner. This document was prepared using [employer] dictation software. Please allow for errors in gymnastics coach, while rare they do occur. Elder Noyola NP rendered care for this patient independently, reviewed the findings and plan as documented in the note above. I did not physically speak with or examine the patient on this date. Objective - Vital Signs Vital signs: Vital Signs Temp 97.5 F L 03/20/24 01:11 Pulse 104 H 03/20/24 01:11 Resp 20 03/19/24 17:58 BP 147/87 03/20/24 01:11 Pulse Ox 97 03/20/24 01:11 FiO2 40 03/20/24 00:20 Intake & Output 03/19/24 03/20/24 03/20/24 18:59 06:59 18:59 Other: Voiding Method Bedside Commode Bedside Commode # Voids 3 2 - Labs CBC & Chem 7: 03/20/24 05:03 03/20/24 11:06
[2024-03-20] MEDS: SODIUM ZIRCONIUM CYCLOSILICATE 10 GM PACKET PO ONE (13:04)
[2024-03-20] MEDS: DEXTROSE 50% SYRINGE 50 ML IVP STA (13:06)
[2024-03-20] MEDS: INSULIN REGULAR 100 UNIT/ML VIAL (IV) IV ONE (13:11)
[2024-03-20] MEDS: CALCIUM GLUCONATE IN NACL 2 GM in SALINE 1 100ML.BAG IVPB ONE (13:41)
[2024-03-20] MEDS: amLODIPine 5 MG TAB PO SCH (13:44)
[2024-03-20 14:35] LABS: Glucose,Whole Blood 84 mg/dL (70-110)
--- NOTE | 2024-03-20 15:03 | P.NPCON ---
History of Present Illness - Reason for Consult hyperkalemia - History of Present Illness patient is a 49-year-old female with history of COPD maintained on home oxygen, diagnoses of SLE about 2 years ago. Patient does not follow with rheumatology yet. Patient is admitted to the hospital with complaints of shortness of breath. Currently being treated for acute exacerbation of COPD. serum potassium was elevated at 6.1 this morning. Patient received IV treatment for hyperkalemia and repeat potassium was 5.9. Blood sugars are not elevated. Serum creatinine at 0.59.patient states she has been voiding. Patient had been on subcutaneous heparin which is now discontinued. No reports of severe constipation. Review of Systems as per HPI Past Medical History Past Medical History: Asthma, Cancer, Heart Failure, COPD, Hypertension, Liver Disease, Rheumatoid Arthritis (RA) Additional Past Medical History / Comment(s): CURRENTLY HAS A COLD. 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 possible ovarian cancer, patient unsure. fatty liver. Lupus. one kidney History of Any Multi-Drug Resistant Organisms: None Reported Past Surgical History: Adenoidectomy, Cholecystectomy, Joint Replacement, Orthopedic Surgery, Tonsillectomy, Tubal Ligation Additional Past Surgical History / Comment(s): RIGHT SHOULDER SURGERY. 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 RIGHT ANKLE SURGERY. Additional Past Anesthesia/Blood Transfusion Reaction / Comment(s): STOPPED BREATHING WITH ANESTHETICS? Past Psychological History: Anxiety Additional Psychological History / Comment(s): "NERVOUS AROUND PEOPLE I DON'T KNOW". Smoking Status: Current every day smoker Past Alcohol Use History: None Reported Past Drug Use History: None Reported - Past Family History Mother Family Medical History: Asthma, COPD, Myocardial Infarction (CT) Brother(s) Family Medical History: Renal Disease Medications and Allergies Home Medications Medication Instructions Recorded Confirmed Type Albuterol Sulfate [Ventolin HFA] 2 puff INHALATION RT-QID PRN 03/19/24 03/19/24 History Budesonide/Formoterol Fumarate 2 puff INHALATION RT-BID 03/19/24 03/19/24 History [Symbicort 160-4.5 Mcg Inhaler] Tiotropium [place] [Spiriva] 1 cap INHALATION RT-DAILY 03/19/24 03/19/24 History Allergies Allergy/AdvReac Type Severity Reaction Status Date / Time Penicillins Allergy Severe Anaphylaxis Verified 03/19/24 12:55 Physical Exam Vitals: Vital Signs Temp Pulse Pulse Resp BP Pulse Ox FiO2 03/20/24 09:54 76 03/20/24 09:41 76 03/20/24 07:42 97.2 F L 116 H 19 169/97 92 L 03/20/24 01:11 97.5 F L 104 H 147/87 97 03/20/24 00:20 40 03/19/24 22:08 74 03/19/24 21:58 70 03/19/24 20:10 102 H 03/19/24 17:58 97.9 F 102 H 20 165/97 90 L 03/19/24 16:41 75 03/19/24 16:31 72 Intake and Output 03/19/24 03/20/24 03/20/24 22:59 06:59 14:59 Other: Voiding Method Bedside Commode Bedside Commode # Voids 3 2 patient is awake, comfortable, no acute distress. Examination of the heart S1 and S2 Examination of the lungs bilateral breath sounds are heard Abdomen is soft obese Examination of the lower extremity shows chronic skin changes with trace edema HYBRID CORN BREEDER exam grossly intact. Results - Lab Results Most recent lab results Calcium 9.0 mg/dL (8.7-10.3) 03/20/24 05:03 Magnesium 2.3 mg/dL (1.5-2.4) 03/20/24 05:03 03/20/24 05:03 03/20/24 11:06 Assessment and Plan Assessment: 1. Hyperkalemia. Etiology unclear. Most likely related to recent use of heparin, now discontinued. Rule out urine retention. No significant history of constipation and blood sugar has not been higher than 140. 2. Recent diagnosis of SLE about 2 years ago, not being followed by rheumatology. 3. Acute exacerbation of COPD. 4. Morbid obesity Plan: check post void bladder scan. Check ultrasound of the kidneys Agree with holding heparin. Repeat lokelma and add one dose of IV Lasix. Repeat potassium in a.m. Maintain low potassium diet. check UA with underlying history of SLE. thank you for the consultation. We will continue to follow the patient with you during her hospitalization.
--- NOTE | 2024-03-20 15:12 | CA ---
Transthoracic Echo Report Name: Rachael Hamilton Age: 49 Gender: F : 1975 Exam Date: 03/20/2024 08:46 Exam Location: [facility] Ht (in): 59 Wt (lb): 355 Ordering Physician: Carolynn Cruz DO Attending/Referring Phys: [id number], Anthony Us Administrative Law Judge Whitley Wu, RD Procedure CPT: Indications: hx CHF Cardiac Hx: Technical Quality: Technically difficult study Contrast 1: Total Dose (mL): Contrast 2: Total Dose (mL): MEASUREMENTS (Male / Female) Normal Values 2D ECHO LV Diastolic Diameter PLAX 5.3 cm 4.2 - 5.9 / 3.9 - 5.3 cm LV Systolic Diameter PLAX 3.7 cm IVS Diastolic Thickness 1.3 cm 0.6 - 1.0 / 0.6 - 0.9 cm LVPW Diastolic Thickness 1.3 cm 0.6 - 1.0 / 0.6 - 0.9 cm LV Relative Wall Thickness 0.5 RV Internal Dim ED PLAX 3.4 cm LA Systolic Diameter LX 3.3 cm 3.0 - 4.0 / 2.7 - 3.8 cm LA Volume 64.2 cm??? 18 - 58 / 22 - 52 cm??? LA Volume Index 23.6 cm???/m??? 16 - 28 cm???/m??? M-MODE Aortic Root Diameter MM 2.8 cm AV Cusp Separation MM 2.4 cm DOPPLER AV Peak Velocity 168.9 cm/s AV Peak Gradient 11.4 mmHg TR Peak Velocity 320.8 cm/s TR Peak Gradient 41.2 mmHg Right Ventricular Systolic Press 56.2 mmHg FINDINGS Left Ventricle Left ventricular ejection fraction is estimated at 55-60 %. Moderately increased septal wall thickness. Mildly increased posterior wall thickness. Left ventricular cavity size normal upper limits Right Ventricle Mild right ventricular dilatation. Severe pulmonary hypertension. Right ventricular systolic pressure estimated at 56 mm hg. Right Atrium Mild right atrial dilatation. No right atrial thrombus or mass seen. Left Atrium Moderately increased left atrial volume. No left atrial thrombus or mass present. Mitral Valve Structurally normal mitral valve. No mitral stenosis, regurgitation or prolapse. Aortic Valve Trileaflet aortic valve. No aortic valve stenosis or regurgitation. Tricuspid Valve Structurally normal tricuspid valve. Mild tricuspid regurgitation. Pulmonic Valve Structurally normal pulmonic valve. No pulmonic regurgitation. Pericardium No pericardial or pleural effusion. Aorta Normal size aortic root and proximal ascending aorta. CONCLUSIONS Normal LV size systolic function Previewed by: Dr. Hector Marrero MD (Electronically Signed) Final Date: 20 March 2024 15:11
[2024-03-20 15:39] LABS: Glucose,Whole Blood 117 mg/dL (70-110)
--- NOTE | 2024-03-20 16:25 | US ---
EXAMINATION TYPE: US kidneys/renal and bladder DATE OF EXAM: 03/20/2024 COMPARISON: NONE CLINICAL INDICATION: Female, 49 years old with history of hyperkalemia; Hyperkalemia Lupus left kidne y is atrophic per patient. Exam limitations due to body habitus. EXAM MEASUREMENTS: Right Kidney: 12.0 x 6.7 x 6.5 cm Left Kidney: Atrophic not visualized. Right Kidney: No hydronephrosis or masses seen Left Kidney: Atrophic Bladder: not visualized There is no evidence for hydronephrosis at this point in time. No nephrolithiasis is seen. No orlando s are identified. The urinary bladder is anechoic. Bilateral ureteral jets are seen. IMPRESSION: 1. No evidence for obstructive uropathy. 2. Atrophic left kidney.
[2024-03-20] MEDS: FUROSEMIDE 10 MG/ML 2 ML VIAL IV ONE (16:54)
[2024-03-20] MEDS: SODIUM ZIRCONIUM CYCLOSILICATE 10 GM PACKET PO SCH (16:57)
[2024-03-20 17:54] LABS: Glucose,Whole Blood 201 mg/dL (70-110)
--- NOTE | 2024-03-20 18:15 | P.PN ---
Subjective Progress Note Date: 03/20/24 49-year-old female who was transferred from [facility], for shortness of breath. She was seen in the emergency department, on March 18, at about 9:15 o'clock. This was on March 18. The patient came in with complaints of shortness of breath, and states that she could not breathe. She apparently recently moved here from [place], and has no physician in the area. She also apparently has been running out of her usual medications. The patient tells us that she has a history of COPD, chronic hypoxemic respiratory failure, on home oxygen of 4 L, ongoing tobacco use, for 30 years, hypertension, obesity, and narcolepsy. The patient was initially on CPAP, and has a trilogy noninvasive ventilator at home. Her complaints include primarily shortness of breath. She really denied other complaints. She had no inhalers, or medication for her nebulizer machine. Laboratory data includes a white count 13, hemoglobin 14.3, hematocrit 48.8, and a platelet count of 209,000. Sodium 138, potassium 5.2, chlorides 104, CO2 29, BUN 15, creatinine 0.59. Glucose was 131. Calcium was normal. No chest x-ray to review. The patient is sitting up in bed. She is currently on 4 L which is what she uses at home. On today's evaluation of 03/20/2024, seen the patient for a follow-up. Slightly improved compared to yesterday. Still bronchospastic and wheezy. No signs of any encephalopathy. No signs of any CO2 narcosis. She is known to have COPD, chronic hypoxic respiratory failure and she has obvious features of obstructive sleep apnea although this has not been officially confirmed. The patient's blood work from today shows a potassium level of 5.9, BUN is at 17 with a creatinine of 0.6 and a sodium levels at 138. WC count of 15.4, he was 14.1 and a platelet count of 211. No other significant events overnight.. She remains on Symbicort as maintenance, DuoNeb updrafts, and she is also on IV Solu-Medrol 40 mg every 8 hours. No other new complaints otherwise for now. Objective - Vital Signs Vital signs: Vital Signs Temp 97.2 F L 03/20/24 07:42 Pulse 76 03/20/24 09:54 Resp 19 03/20/24 07:42 BP 169/97 03/20/24 07:42 Pulse Ox 92 L 03/20/24 07:42 FiO2 40 03/20/24 00:20 Intake & Output 03/19/24 03/20/24 03/20/24 18:59 06:59 18:59 Other: Voiding Method Bedside Commode Bedside Commode Bedside Commode # Voids 3 2 - Exam No acute distress, oriented 3. Currently on 4 L. No audible wheezing. No conversational dyspnea. No use of accessory muscles. HEENT examination is grossly unremarkable. Mucous membranes are moist. No oral lesions. Neck supple. Full range of motion. No adenopathy thyromegaly or neck vein distention. Cardiovascular examination reveals regular rhythm rate. S1-S2 normal. No S3 or S4. No discernible murmur noted. Heart sounds are distant. Lungs reveal mostly clear breath sounds. Minimal rhonchi. No wheezes or crackles. Breath sounds equal bilaterally. Abdomen soft with bowel sounds. No masses or tenderness. Extremities are intact. No cyanosis clubbing or edema. Skin is without rash or lesion. Neurologic examination is brief but nonfocal. - Labs CBC & Chem 7: 03/20/24 05:03 03/20/24 11:06 Labs: Abnormal Lab Results - Last 24 Hours (Table) 03/20/24 03/20/24 03/20/24 Range/Units 05:03 05:03 11:06 WBC 15.34 H (4.50-10.00) X 10*3/uL Hct 50.9 H (37.2-46.3) % MCV 97.9 H (80.0-97.0) FL MCHC 27.7 L (32.0-37.0) g/dL RDW 17.2 H (11.5-14.5) % NRBC/100 WBC Diff 0.08 H (0.00-0.01) X 10*3/uL Potassium 6.1 A* 5.9 H (3.5-5.5) mmol/L BUN/Creatinine Ratio 29.33 H (12.00-20.00) Ratio Glucose 140 H (70-110) mg/dL Assessment and Plan Plan: Acute hypoxemic respiratory failure, likely secondary to COPD exacerbation. The patient remains on 4 L of O2 nasal cannula Acute acute exacerbation, improved compared to yesterday Chronic hypoxemic respiratory failure on home O2 at 4 L. History of narcolepsy. History of sleep apnea syndrome, the patient has undergone a sleep study in the [facility] and currently she does not have a CPAP/BiPAP device. History of hypertension. History of obesity. History of ongoing tobacco use for the last 30 years. Plan Continue same treatment. The goal of therapy is to optimize COPD. Smoking cessation counseling was done. Outpatient polysomnography as the patient has difficulties with obstructive sleep apnea and she would benefit from CPAP/BiPAP treatment. Will continue to follow.
[2024-03-20] MEDS ORDERED: ENOXAPARIN 40 MG/0.4 ML SYRINGE SQ SCH (21:00)
[2024-03-21 05:45] LABS: Partial Thromboplastin Time 23.6 sec (22.0-30.0); Prothrombin Time 10.8 sec (10.0-12.5)
[2024-03-21] MEDS ORDERED: NON FORMULARY DRUG (Tiotropium Bromide [Spiriva Handihaler] 18 MCG Cap.W.Dev) INHALATION SCH (08:00)
[2024-03-21 09:06] LABS: ALT 38 U/L (8-44); AST 18 U/L (13-35); Albumin 4.3 g/dL (3.8-4.9); Albumin/Globulin Ratio 1.54 Ratio (1.60-3.17); Alkaline Phosphatase 126 U/L (41-126); BUN/Creat Ratio 30.33 Ratio (12.00-20.00); Blood Urea Nitrogen 18.2 mg/dL (9.0-27.0); Calcium 9.5 mg/dL (8.7-10.3); Carbon Dioxide 35.4 mmol/L (21.6-31.8); Chloride 97 mmol/L (96-109); Globulin 2.8 g/dL (1.6-3.3); Glucose 128 mg/dL (70-110); HGB 14.1 g/dL (12.0-15.0); MCH 27.2 pg (27.0-32.0); MCHC 28.8 g/dL (32.0-37.0); MCV 94.6 FL (80.0-97.0); Magnesium 2.1 mg/dL (1.5-2.4); Mean Platelet Volume 11.1 FL (9.5-12.2); NRBC Per 100 WBC 0.06 X 10*3/uL (0.00-0.01); Platelet Count 191 X 10*3/uL (140-440); Potassium 5.5 mmol/L (3.5-5.5); RBC 5.18 X 10*6/uL (4.10-5.20); Sodium 140 mmol/L (135-145); Total Bilirubin 0.3 mg/dL (0.3-1.2); Total Protein 7.1 g/dL (6.2-8.2)
[2024-03-21 09:55] LABS: Basophils # (M) 0 X 10*3/uL (0.00-0.10); Eosinophils # (M) 0 X 10*3/uL (0.04-0.35); Lymphocytes # (M) 0.29 X 10*3/uL (0.90-5.00); Metamyelocytes % 1 % (0-0); Monocytes # (M) 0.57 X 10*3/uL (0.20-1.00); Myelocytes % 4 % (0-0); Neutrophils # (M) 12.73 X 10*3/uL (1.80-7.70); Neutrophils % (M) 89 %; Nucleated Red Blood Cells 1 /100 WBCS; RBC Morphology Normal (Normal)
--- NOTE | 2024-03-21 11:43 | P.PN ---
Subjective Progress Note Date: 03/21/24 Hospital course: Patient is a pleasant 49-year-old female with a past medical history of COPD home oxygen dependent on 4 L and continued nicotine dependence, lupus, and narcolepsy. She presented to our facility on 03/18/2024 as a transfer from [facility] where she presented with increasing shortness of breath and was reportedly found to have an SpO2 of 75% on her baseline supplemental oxygen and was then transferred to our facility secondary to COPD exacerbation. Chest x-ray at previous facility reported diffuse bronchial wall thickening with diffuse bronchovascular prominence. Upon arrival to our facility patient underwent evaluation in the emergency department. Vital signs upon arrival show blood pressure 144/85, heart rate 94, respiratory rate 20, temp 97.8 F, and SpO2 of 93% on 4 L. Labs were completed and reviewed. CBC showing leukocytosis with WBC count of 13.0 and elevated hematocrit of 48.8. BMP revealing mild hyperkalemia with potassium of 5.2 and hyperglycemia with glucose of 131. Patient was admitted under our services with consultation to pulmonology. On the morning of 03/20/2024 patient was found to have further elevation of potassium levels, it is of unclear etiology possibly secondary to heparin- induced hypoaldosteronism versus unexplained hyperkalemia secondary to patient's known systemic lupus erythematous. Nephrology was consulted for evaluation of hyperkalemia of unclear origin.. Physical exam: Patient was seen and fully evaluated at bedside this morning. She reports her breathing is better and back at baseline. She continues to have elevated potassium levels currently 5.5 this morning. Vital signs reviewed and stable. General: Nontoxic, no distress and appears stated age. Morbidly obese. Derm: Skin warm and dry, normal coloration for ethnicity. Head: Atraumatic, normocephalic and symmetric. Eyes: EOMs intact, no lid lag, and anicteric sclera Mouth: no lip lesions, mucus membranes moist Cardiovascular: regular rate and rhythm with normal S1S2, no murmur, positive posterior tibial pulses bilaterally, and cap refill < 2 seconds. Lungs: Respirations even, regular, and unlabored on supplemental oxygen. Lungs diminished with soft expiratory wheezes in upper lobes otherwise no rhonchi, rales, or crackles noted. Abdominal: Obese abdomen, soft, nontender to palpation, no guarding, no appreciable organomegaly Ext: ROM intact. No gross muscle atrophy, no edema, no contractures Neuro: Speech clear, face symmetrical and CN II-XII grossly intact with no noted focal neuro deficits Psych: Alert and oriented to person, place, time, and situation. Appropriate and pleasant affect. Assessment and Plan of Care: COPD with acute exacerbation Acute on chronic respiratory failure, secondary to above Continued nicotine dependence -Pulmonary following, discussed plan of care with Dr. Torres. -Oxygenation to be administered and titrated as needed to maintain SPO2 equal to or greater than 90% -Telemetry monitoring. -Monitor pulse-oximetry -Duonebs scheduled 4 times daily and as needed for SOB and/or wheezing -Symbicort 160-4.5 mcg inhaler 2 puffs twice daily -Incentive Spirometry -Steroids: Solu-Medrol 40 mg IVP every 8 hours -Antibiotics: Azithromycin 500 mg daily x 3 days (day 3/) and Rocephin 1 g daily day 12/13). -Strongly recommend smoking cessation, continue nicotine patch 21 mg daily. Hyperkalemia, unclear etiology possibly secondary to heparin-induced hypoaldosteronism vs unexplained hyperkalemia secondary to systemic lupus erythematous Systemic Lupus Erythematous -Hyperkalemia of unclear etiology possibly secondary to unexplained hyperkalemia resulting from systemic lupus erythematous vs heparin-induced hypoaldosteronism, however sodium levels are stable at 140 and blood pressure is elevated at 158/94 -Subcutaneous heparin was discontinued, DVT prophylaxis with SCDs and NATASHA hose at this time. -Continue to monitor potassium levels closely with repeat BMP to monitor for improvement/resolution of hyperkalemia -Order placed for EKG, monitor for peaked P waves -Nephrology consulted and discussed plan of care with Dr. Portillo. Will continue to monitor potassium levels closely. -Renal ultrasound completed showing no evidence for uropathy and findings of atrophic left kidney. Data and imaging reviewed: Labs reviewed. CBC showing leukocytosis with WBC count of 14.34 and elevated hematocrit of 49.0. Coagulation profile normal findings. BMP showing potassium of 5.9, sodium of 140, and elevated bicarb of 35.4. Blood glucose 128. Magnesium normal findings at 2.1. Liver profile unremarkable. Vital signs reviewed. Blood pressure 158/94, heart rate 74, respiratory rate 19, temp 97.4 F, and SpO2 of 99% on baseline 4 L O2. Renal ultrasound completed showing no evidence for uropathy and findings of atrophic left kidney. CODE STATUS full code DVT prophylaxis: Heparin Anticipated discharge date: Pending clinical course Anticipated discharge place: Home Patient was seen independently by Nurse Pracitioner. This document was prepared using iCurrent dictation software. Please allow for errors in reference library assistant, while rare they do occur. I reviewed the documentation as provided by the KINGA above, who is the original author of this note. I agree with the documented assessment and plan, with the following changes: none Objective - Vital Signs Vital signs: Vital Signs Temp 97.4 F L 03/21/24 07:16 Pulse 74 03/21/24 07:16 Resp 19 03/21/24 07:16 BP 158/94 03/21/24 07:16 Pulse Ox 99 03/21/24 07:16 FiO2 40 03/20/24 00:20 Intake & Output 03/20/24 03/21/24 03/21/24 18:59 06:59 18:59 Other: Voiding Method Bedside Commode Toilet Bedside Commode # Voids 2 3 - Labs CBC & Chem 7: 03/21/24 04:50 03/21/24 04:50 Labs: Abnormal Lab Results - Last 24 Hours (Table) 03/20/24 03/20/24 03/20/24 Range/Units 05:03 05:03 11:06 WBC 15.34 H (4.50-10.00) X 10*3/uL Hct 50.9 H (37.2-46.3) % MCV 97.9 H (80.0-97.0) FL MCHC 27.7 L (32.0-37.0) g/dL RDW 17.2 H (11.5-14.5) % NRBC/100 WBC Diff 0.08 H (0.00-0.01) X 10*3/uL Potassium 6.1 A* 5.9 H (3.5-5.5) mmol/L BUN/Creatinine Ratio 29.33 H (12.00-20.00) Ratio Glucose 140 H (70-110) mg/dL POC Glucose (mg/dL) (70-110) mg/dL 03/20/24 03/20/24 Range/Units 15:37 17:49 WBC (4.50-10.00) X 10*3/uL Hct (37.2-46.3) % MCV (80.0-97.0) FL MCHC (32.0-37.0) g/dL RDW (11.5-14.5) % NRBC/100 WBC Diff (0.00-0.01) X 10*3/uL Potassium (3.5-5.5) mmol/L BUN/Creatinine Ratio (12.00-20.00) Ratio Glucose (70-110) mg/dL POC Glucose (mg/dL) 117 H 201 H (70-110) mg/dL
--- NOTE | 2024-03-21 13:04 | P.PN ---
Subjective patient is seen for follow-up for hyperkalemia. No evidence of acute kidney injury. Patient states that bladder scan was done, it is not charted. Ultrasound shows left renal atrophy. Serum potassium at 5.5 today. Patient states that she is maintained on oral Lasix at home. Objective - Vital Signs Vital signs: Vital Signs Temp 97.4 F L 03/21/24 07:16 Pulse 80 03/21/24 08:40 Resp 20 03/21/24 08:40 BP 158/94 03/21/24 07:16 Pulse Ox 100 03/21/24 08:30 FiO2 40 03/20/24 00:20 Intake & Output 03/20/24 03/21/24 03/21/24 18:59 06:59 18:59 Other: Voiding Method Bedside Commode Toilet Bedside Commode # Voids 2 3 2 - Exam patient is awake, comfortable, no acute distress. Examination of the heart S1 and S2 Examination of the lungs bilateral breath sounds are heard Abdomen is soft obese Examination of the lower extremity shows chronic skin changes with trace edema MEDICAL AFFAIRS MANAGER exam grossly intact. - Labs CBC & Chem 7: 03/21/24 04:50 03/21/24 04:50 Labs: Abnormal Lab Results - Last 24 Hours (Table) 03/20/24 03/20/24 03/21/24 Range/Units 15:37 17:49 04:50 WBC 14.30 H (4.50-10.00) X 10*3/uL Hct 49.0 H (37.2-46.3) % MCHC 28.8 L (32.0-37.0) g/dL RDW 17.0 H (11.5-14.5) % Neutrophils # (Manual) 12.73 H (1.80-7.70) X 10*3/uL Lymphocytes # (Manual) 0.29 L (0.90-5.00) X 10*3/uL Eosinophils # (Manual) 0 L (0.04-0.35) X 10*3/uL NRBC/100 WBC Diff 0.06 H (0.00-0.01) X 10*3/uL Carbon Dioxide (21.6-31.8) mmol/L BUN/Creatinine Ratio (12.00-20.00) Ratio Glucose (70-110) mg/dL POC Glucose (mg/dL) 117 H 201 H (70-110) mg/dL Albumin/Globulin Ratio (1.60-3.17) Ratio 03/21/24 Range/Units 04:50 WBC (4.50-10.00) X 10*3/uL Hct (37.2-46.3) % MCHC (32.0-37.0) g/dL RDW (11.5-14.5) % Neutrophils # (Manual) (1.80-7.70) X 10*3/uL Lymphocytes # (Manual) (0.90-5.00) X 10*3/uL Eosinophils # (Manual) (0.04-0.35) X 10*3/uL NRBC/100 WBC Diff (0.00-0.01) X 10*3/uL Carbon Dioxide 35.4 H (21.6-31.8) mmol/L BUN/Creatinine Ratio 30.33 H (12.00-20.00) Ratio Glucose 128 H (70-110) mg/dL POC Glucose (mg/dL) (70-110) mg/dL Albumin/Globulin Ratio 1.54 L (1.60-3.17) Ratio Assessment and Plan Assessment: 1. Hyperkalemia. Etiology unclear. Most likely related to recent use of heparin, now discontinued. Rule out urine retention. No significant history of constipation and blood sugar has not been higher than 140. Labs not suggestive of underlying renal tubular acidosis. patient is maintained on loop diuretics at home. This will be resumed. ultrasound shows left renal atrophy. 2. Recent diagnosis of SLE about 2 years ago, not being followed by rheumatology. 3. Acute exacerbation of COPD. 4. Morbid obesity 5. Left renal atrophy. Plan: check post void bladder scan. resume Lasix Continue low potassium diet Repeat labs in a.m.
[2024-03-21] MEDS: FUROSEMIDE 10 MG/ML 4 ML VIAL IV STA (13:11)
--- NOTE | 2024-03-21 13:13 | P.PN ---
Subjective Progress Note Date: 03/21/24 49-year-old female who was transferred from [facility], for shortness of breath. She was seen in the emergency department, on March 18, at about 9:15 o'clock. This was on March 18. The patient came in with complaints of shortness of breath, and states that she could not breathe. She apparently recently moved here from [place], and has no physician in the area. She also apparently has been running out of her usual medications. The patient tells us that she has a history of COPD, chronic hypoxemic respiratory failure, on home oxygen of 4 L, ongoing tobacco use, for 30 years, hypertension, obesity, and narcolepsy. The patient was initially on CPAP, and has a trilogy noninvasive ventilator at home. Her complaints include primarily shortness of breath. She really denied other complaints. She had no inhalers, or medication for her nebulizer machine. Laboratory data includes a white count 13, hemoglobin 14.3, hematocrit 48.8, and a platelet count of 209,000. Sodium 138, potassium 5.2, chlorides 104, CO2 29, BUN 15, creatinine 0.59. Glucose was 131. Calcium was normal. No chest x-ray to review. The patient is sitting up in bed. She is currently on 4 L which is what she uses at home. On today's evaluation of 03/20/2024, seen the patient for a follow-up. Slightly improved compared to yesterday. Still bronchospastic and wheezy. No signs of any encephalopathy. No signs of any CO2 narcosis. She is known to have COPD, chronic hypoxic respiratory failure and she has obvious features of obstructive sleep apnea although this has not been officially confirmed. The patient's blood work from today shows a potassium level of 5.9, BUN is at 17 with a creatinine of 0.6 and a sodium levels at 138. WC count of 15.4, he was 14.1 and a platelet count of 211. No other significant events overnight.. She remains on Symbicort as maintenance, DuoNeb updrafts, and she is also on IV Solu-Medrol 40 mg every 8 hours. No other new complaints otherwise for now. 03/21/2024, the patient is feeling much improved. Less short of breath bronchospastic and wheezy. No specific complaints. The white cell count is at 14.3 with a hemoglobin of 14 and a platelet count of 191. Normal coagulation profile. Normal electrolytes. Currently on room air oxygen. Remains on DuoNeb updrafts and Symbicort as maintenance and he remains on IV Solu-Medrol 40 mg every 8 hours. She has a nicotine patch. Objective - Vital Signs Vital signs: Vital Signs Temp 97.4 F L 03/21/24 07:16 Pulse 80 03/21/24 08:40 Resp 20 03/21/24 08:40 BP 158/94 03/21/24 07:16 Pulse Ox 100 03/21/24 08:30 FiO2 40 03/20/24 00:20 Intake & Output 03/20/24 03/21/24 03/21/24 18:59 06:59 18:59 Other: Voiding Method Bedside Commode Toilet Bedside Commode # Voids 2 3 2 - Exam No acute distress, oriented 3. Currently on 4 L. No audible wheezing. No con versational dyspnea. No use of accessory muscles. HEENT examination is grossly unremarkable. Mucous membranes are moist. No oral lesions. Neck supple. Full range of motion. No adenopathy thyromegaly or neck vein distention. Cardiovascular examination reveals regular rhythm rate. S1-S2 normal. No S3 or S4. No discernible murmur noted. Heart sounds are distant. Lungs reveal mostly clear breath sounds. Minimal rhonchi. No wheezes or crackles. Breath sounds equal bilaterally. Abdomen soft with bowel sounds. No masses or tenderness. Extremities are intact. No cyanosis clubbing or edema. Skin is without rash or lesion. Neurologic examination is brief but nonfocal. - Labs CBC & Chem 7: 03/21/24 04:50 03/21/24 04:50 Labs: Abnormal Lab Results - Last 24 Hours (Table) 03/20/24 03/20/24 03/20/24 Range/Units 11:06 15:37 17:49 WBC (4.50-10.00) X 10*3/uL Hct (37.2-46.3) % MCHC (32.0-37.0) g/dL RDW (11.5-14.5) % Neutrophils # (Manual) (1.80-7.70) X 10*3/uL Lymphocytes # (Manual) (0.90-5.00) X 10*3/uL Eosinophils # (Manual) (0.04-0.35) X 10*3/uL NRBC/100 WBC Diff (0.00-0.01) X 10*3/uL Potassium 5.9 H (3.5-5.1) mmol/L Carbon Dioxide (21.6-31.8) mmol/L BUN/Creatinine Ratio (12.00-20.00) Ratio Glucose (70-110) mg/dL POC Glucose (mg/dL) 117 H 201 H (70-110) mg/dL Albumin/Globulin Ratio (1.60-3.17) Ratio 03/21/24 03/21/24 Range/Units 04:50 04:50 WBC 14.30 H (4.50-10.00) X 10*3/uL Hct 49.0 H (37.2-46.3) % MCHC 28.8 L (32.0-37.0) g/dL RDW 17.0 H (11.5-14.5) % Neutrophils # (Manual) 12.73 H (1.80-7.70) X 10*3/uL Lymphocytes # (Manual) 0.29 L (0.90-5.00) X 10*3/uL Eosinophils # (Manual) 0 L (0.04-0.35) X 10*3/uL NRBC/100 WBC Diff 0.06 H (0.00-0.01) X 10*3/uL Potassium (3.5-5.1) mmol/L Carbon Dioxide 35.4 H (21.6-31.8) mmol/L BUN/Creatinine Ratio 30.33 H (12.00-20.00) Ratio Glucose 128 H (70-110) mg/dL POC Glucose (mg/dL) (70-110) mg/dL Albumin/Globulin Ratio 1.54 L (1.60-3.17) Ratio Assessment and Plan Plan: Acute hypoxemic respiratory failure, likely secondary to COPD exacerbation. Acute acute exacerbation, improved compared to yesterday, reports that her overall respiratory status is back to her baseline Chronic hypoxemic respiratory failure on home O2 at 4 L. History of narcolepsy. History of sleep apnea syndrome, the patient has undergone a sleep study in the [facility], [place], operated by [facility] and currently she does not have a CPAP/BiPAP device. History of hypertension. History of obesity. History of ongoing tobacco use for the last 30 years. Plan Patient can be discharged home on a combination of Symbicort and Spiriva as maintenance for COPD and a prednisone burst taper Patient has home oxygen Smoking cessation counseling was done. Outpatient polysomnography as the patient has difficulties with obstructive sleep apnea and she would benefit from CPAP/BiPAP treatment. Will continue to follow.
[2024-03-21] MEDS: cloNIDine HCL 0.2 MG TAB PO PRN (20:31)
[2024-03-22 02:21] VITALS: RESP 16
[2024-03-22 08:28] VITALS: BP 161/98; TEMP 97.5
[2024-03-22] MEDS: FUROSEMIDE 40 MG TAB PO SCH (09:16)
[2024-03-22 09:36] LABS: Anisocytosis Slight; HGB 14.8 gm/dL (11.4-16.0); Hypochromasia Marked; MCH 27.5 pg (25.0-35.0); MCHC 29.5 g/dL (31.0-37.0); MCV 93.2 fL (80.0-100.0); Platelet Count 161 k/uL (150-450); RBC 5.37 m/uL (3.80-5.40); RDW 16.1 % (11.5-15.5); WBC 7.9 k/uL (3.8-10.6)
[2024-03-22 09:50] LABS: African American GFR (CKD) >90 (>60 ml/min/1.73 sqM); Blood Urea Nitrogen 29 mg/dL (7-17); Calcium 8.7 mg/dL (8.4-10.2); Chloride 95 mmol/L (98-107); Glucose 162 mg/dL (74-99); Non-African American GFR(CKD) >90 (>60 ml/min/1.73 sqM); Potassium 4.2 mmol/L (3.5-5.1); Sodium 138 mmol/L (137-145)
[2024-03-22 09:56] LABS: Anion Gap 6 mmol/L
[2024-03-22 09:58] LABS: Carbon Dioxide 37 mmol/L (22-30)
[2024-03-22 11:16] VITALS: PULSE 82
--- NOTE | 2024-03-22 11:37 | P.DS ---
Providers Date of admission: 03/20/24 11:25 Expected date of discharge: 03/22/24 Attending physician: Sue Cade MD Consults: 03/18/24 22:18 Consult Physician Urgent Consulting Provider: Coleman Castellon Consult Reason/Comments: acute hypoxic resp failure, aecopd Do you want consulting provider notified?: Yes 03/20/24 11:23 Consult Physician Routine Consulting Provider: Dolores Portillo Consult Reason/Comments: hyperkalemia, unclear possibly d/t SLE vs heparin induced aldosteronism Do you want consulting provider notified?: Yes Primary care physician: Stated None Hospital Course: Discharge Diagnosis: COPD with acute exacerbation Acute on chronic respiratory failure, secondary to above Continued nicotine dependence Hyperkalemia, unclear etiology possibly secondary to heparin-induced hypoaldosteronism vs unexplained hyperkalemia secondary to systemic lupus erythematous. Systemic Lupus Erythematous Hospital course: Patient is a pleasant 49-year-old female with a past medical history of COPD home oxygen dependent on 4 L and continued nicotine dependence, lupus, and narcolepsy. She presented to our facility on 03/18/2024 as a transfer from [facility] where she presented with increasing shortness of breath and was reportedly found to have an SpO2 of 75% on her baseline supplemental oxygen and was then transferred to our facility secondary to COPD exacerbation. Chest x-ray at previous facility reported diffuse bronchial wall thickening with diffuse bronchovascular prominence. Upon arrival to our facility patient underwent evaluation in the emergency department. Vital signs upon arrival show blood pressure 144/85, heart rate 94, respiratory rate 20, temp 97.8 F, and SpO2 of 93% on 4 L. Labs were completed and reviewed. CBC showing leukocytosis with WBC count of 13.0 and elevated hematocrit of 48.8. BMP revealing mild hyperkalemia with potassium of 5.2 and hyperglycemia with glucose of 131. Patient was admitted under our services with consultation to pulmonology. On the morning of 03/20/2024 patient was found to have further elevation of potassium levels, it is of unclear etiology possibly secondary to heparin- induced hypoaldosteronism versus unexplained hyperkalemia secondary to patient's known systemic lupus erythematous. Nephrology was consulted for evaluation of hyperkalemia of unclear origin.. Patient received treatment with hyperkalemia cocktail for elevated potassium levels and was even evaluated by railroad police officer. She was started on Lasix 40 mg daily. COPD exacerbation improving and patient remains on baseline home oxygen needs. Repeat morning labs show resolution of leukocytosis with WBC count decreasing from 14.30 down to 7.9 this morning and BMP showing resolution of hyperkalemia with morning potassium of 4.2. Patient cleared for discharge at this time, she will need repeat BMP completed in 3 days as outpatient and instructed she will need to follow-up outpatient with her PCP, railroad police officer, and public relations specialist. Patient discharged home on prednisone taper, Lasix 40 mg daily, and amlodipine milligrams daily. Patient to continue use of Ventolin inhaler 4 times daily, Symbicort 2 puffs twice daily, and Spiriva inhaler daily. Physical exam: Vital signs reviewed and stable. General: Nontoxic, no distress and appears stated age. Morbidly obese. Derm: Skin warm and dry, normal coloration for ethnicity. Head: Atraumatic, normocephalic and symmetric. Eyes: EOMs intact, no lid lag, and anicteric sclera Mouth: no lip lesions, mucus membranes moist Cardiovascular: regular rate and rhythm with normal S1S2, no murmur, positive posterior tibial pulses bilaterally, and cap refill < 2 seconds. Lungs: Respirations even, regular, and unlabored on supplemental oxygen. Lungs diminished with soft expiratory wheezes in upper lobes otherwise no rhonchi, rales, or crackles noted. Abdominal: Obese abdomen, soft, nontender to palpation, no guarding, no appreciable organomegaly Ext: ROM intact. No gross muscle atrophy, no edema, no contractures Neuro: Speech clear, face symmetrical and CN II-XII grossly intact with no noted focal neuro deficits Psych: Alert and oriented to person, place, time, and situation. Appropriate and pleasant affect. A total of 35 minutes of time were spent preparing this complex discharge summary. Pt was discharged on 03/22/2024 at 11:28 AM. Patient was seen independently by Nurse Practitioner. This document was prepared using [employer] dictation software. Please allow for errors in assistant wrestling coach while rare they do occur. I reviewed the documentation as provided by the KINGA above, who is the original author of this note. I agree with the documented assessment and plan, with the following changes: none Patient Condition at Discharge: Stable Plan - Discharge Summary Discharge Rx Participant: Yes New Discharge Prescriptions: New Furosemide [Lasix] 40 mg PO DAILY 30 Days #30 tab Nicotine 21Mg/24Hr Patch [Habitrol] 1 patch TRANSDERM DAILY 30 Days #30 patch amLODIPine [Norvasc] 5 mg PO DAILY 30 Days #30 tab predniSONE See Taper PO DIRECTED 12 Days #30 tab Continue Tiotropium [place] [Spiriva Handihaler] 1 cap INHALATION RT-DAILY Albuterol Sulfate [Ventolin HFA] 2 puff INHALATION RT-QID PRN PRN Reason: Shortness Of Breath Budesonide/Formoterol Fumarate [Symbicort 160-4.5 Mcg Inhaler] 2 puff INHALATION RT-BID Discharge Medication List Albuterol Sulfate [Ventolin HFA] 2 puff INHALATION RT-QID PRN 03/19/24 [History] Budesonide/Formoterol Fumarate [Symbicort 160-4.5 Mcg Inhaler] 2 puff INHALATION RT-BID 03/19/24 [History] Tiotropium [place] [Spiriva Handihaler] 1 cap INHALATION RT-DAILY 03/19/24 [History] Furosemide [Lasix] 40 mg PO DAILY 30 Days #30 tab 03/22/24 [Rx] Nicotine 21Mg/24Hr Patch [Habitrol] 1 patch TRANSDERM DAILY 30 Days #30 patch 03/22/24 [Rx] amLODIPine [Norvasc] 5 mg PO DAILY 30 Days #30 tab 03/22/24 [Rx] predniSONE See Taper PO DIRECTED 12 Days #30 tab 03/22/24 [Rx] Follow up Appointment(s)/Referral(s): Dolores Portillo MD [STAFF PHYSICIAN] - 1 Week (Office stated they will call patient with appointment time and date.) Equipment & Supplies,[facility] [NON-STAFF] - As Needed (Please call [facility] once home to arrange appointment for oxygen delivery. Communications Program Manager Mary faxed order and supporting documents to recertify your oxygen and requested they come service or replace your concentrator. They should also deliver a new neb ulizer. ) Karson Smith III, MD [STAFF PHYSICIAN] - 1-2 Days (Please call and schedule appointment prior to discharge to ensure patient has follow up appointment and establishes care with a PCP) Gasper Torres MD [STAFF PHYSICIAN] - 04/26/24 10:00 am Ambulatory/Diagnostic Orders: Basic Metabolic Panel [LAB.AMB] Time Frame: 3 Days, Location: None Selected Patient Instructions/Handouts: How to Stop Smoking (DC), COPD (Chronic Obstructive Pulmonary Disease) (DC), Hyperkalemia (DC) Activity/Diet/Wound Care/Special Instructions: Activity: As tolerated. Take breaks as needed. Diet: Heart healthy and carb consistent diet. Avoid salts, or foods with hidden salts such as canned or boxed foods and frozen dinners. Extra salt makes your heart work harder and traps the fluid in your body for longer. Special Instructions: Take all of your medications as directed and remember to keep all of your doctor's appointments and follow-up as needed. Thank you for allowing us to participate in your care, it was truly a pleasure having you for our patient!!! . Discharge Disposition: HOME SELF-CARE
--- NOTE | 2024-03-22 13:34 | P.PN ---
Subjective patient is seen for follow-up for hyperkalemia. potassium has improved with IV Lasix. It is 4.2 today. Shortness of breath has improved. Objective - Vital Signs Vital signs: Vital Signs Temp 97.5 F L 03/22/24 07:29 Pulse 82 03/22/24 11:16 Resp 16 03/22/24 00:56 BP 161/98 03/22/24 07:29 Pulse Ox 87 L 03/22/24 11:46 FiO2 40 03/20/24 00:20 Intake & Output 03/21/24 03/22/24 03/22/24 18:59 06:59 18:59 Intake Total 118 Output Total 2 Balance -2 118 Intake: Oral 118 Output: Urine 2 Other: Voiding Method Toilet # Voids 1 5 1 - Exam patient is awake, comfortable, no acute distress. Examination of the heart S1 and S2 Examination of the lungs bilateral breath sounds are heard Abdomen is soft obese Examination of the lower extremity shows chronic skin changes with trace edema [employer] exam grossly intact. - Labs CBC & Chem 7: 03/22/24 09:10 03/22/24 09:10 Labs: Abnormal Lab Results - Last 24 Hours (Table) 03/22/24 03/22/24 Range/Units 09:10 09:10 Hct 50.0 H (34.0-46.0) % MCHC 29.5 L (31.0-37.0) g/dL RDW 16.1 H (11.5-15.5) % Chloride 95 L (98-107) mmol/L Carbon Dioxide 37 H (22-30) mmol/L BUN 29 H (7-17) mg/dL Glucose 162 H (74-99) mg/dL Assessment and Plan Assessment: 1. Hyperkalemia. Etiology unclear. Most likely related to recent use of heparin, now discontinued. No significant history of constipation and blood sugar has not been higher than 140. Labs not suggestive of underlying renal tubular acidosis. patient is maintained on loop diuretics at home. This will be resumed. ultrasound shows left renal atrophy. 2. Recent diagnosis of SLE about 2 years ago, not being followed by r heumatology. 3. Acute exacerbation of COPD. 4. Morbid obesity 5. Left renal atrophy. Plan: resume Lasix Continue low potassium diet okay to discharge from nephrology standpoint.
--- NOTE | 2024-03-22 15:19 | P.PN ---
Subjective Progress Note Date: 03/22/24 49-year-old female who was transferred from [facility], for shortness of breath. She was seen in the emergency department, on March 18, at about 9:15 o'clock. This was on March 18. The patient came in with complaints of shortness of breath, and states that she could not breathe. She apparently recently moved here from [place], and has no physician in the area. She also apparently has been running out of her usual medications. The patient tells us that she has a history of COPD, chronic hypoxemic respiratory failure, on home oxygen of 4 L, ongoing tobacco use, for 30 years, hypertension, obesity, and narcolepsy. The patient was initially on CPAP, and has a trilogy noninvasive ventilator at home. Her complaints include primarily shortness of breath. She really denied other complaints. She had no inhalers, or medication for her nebulizer machine. Laboratory data includes a white count 13, hemoglobin 14.3, hematocrit 48.8, and a platelet count of 209,000. Sodium 138, potassium 5.2, chlorides 104, CO2 29, BUN 15, creatinine 0.59. Glucose was 131. Calcium was normal. No chest x-ray to review. The patient is sitting up in bed. She is currently on 4 L which is what she uses at home. On today's evaluation of 03/20/2024, seen the patient for a follow-up. Slightly improved compared to yesterday. Still bronchospastic and wheezy. No signs of any encephalopathy. No signs of any CO2 narcosis. She is known to have COPD, chronic hypoxic respiratory failure and she has obvious features of obstructive sleep apnea although this has not been officially confirmed. The patient's blood work from today shows a potassium level of 5.9, BUN is at 17 with a creatinine of 0.6 and a sodium levels at 138. WC count of 15.4, he was 14.1 and a platelet count of 211. No other significant events overnight.. She remains on Symbicort as maintenance, DuoNeb updrafts, and she is also on IV Solu-Medrol 40 mg every 8 hours. No other new complaints otherwise for now. 03/21/2024, the patient is feeling much improved. Less short of breath bronchospastic and wheezy. No specific complaints. The white cell count is at 14.3 with a hemoglobin of 14 and a platelet count of 191. Normal coagulation profile. Normal electrolytes. Currently on room air oxygen. Remains on DuoNeb updrafts and Symbicort as maintenance and he remains on IV Solu-Medrol 40 mg every 8 hours. She has a nicotine patch. On 03/22/2024, seen the patient for a follow-up. Patient is doing well. No spec ific complaints. Electrolytes are stable. Respiratory status back to baseline. White cell count down to 7.9. No respiratory difficulties. Continues to be on same medication for now. The plan is to discharge this patient home today. Objective - Vital Signs Vital signs: Vital Signs Temp 97.5 F L 03/22/24 07:29 Pulse 86 03/22/24 08:01 Resp 16 03/22/24 00:56 BP 161/98 03/22/24 07:29 Pulse Ox 98 03/22/24 07:49 FiO2 40 03/20/24 00:20 Intake & Output 03/21/24 03/22/24 03/22/24 18:59 06:59 18:59 Intake Total 118 Output Total 2 Balance -2 118 Intake: Oral 118 Output: Urine 2 Other: Voiding Method Toilet # Voids 1 5 1 - Exam No acute distress, oriented 3. Currently on 4 L. No audible wheezing. No conversational dyspnea. No use of accessory muscles. HEENT examination is grossly unremarkable. Mucous membranes are moist. No oral lesions. Neck supple. Full range of motion. No adenopathy thyromegaly or neck vein distention. Cardiovascular examination reveals regular rhythm rate. S1-S2 normal. No S3 or S4. No discernible murmur noted. Heart sounds are distant. Lungs reveal mostly clear breath sounds. Minimal rhonchi. No wheezes or crackles. Breath sounds equal bilaterally. Abdomen soft with bowel sounds. No masses or tenderness. Extremities are intact. No cyanosis clubbing or edema. Skin is without rash or lesion. Neurologic examination is brief but nonfocal. - Labs CBC & Chem 7: 03/22/24 09:10 03/22/24 09:10 Labs: Abnormal Lab Results - Last 24 Hours (Table) 03/22/24 03/22/24 Range/Units 09:10 09:10 Hct 50.0 H (34.0-46.0) % MCHC 29.5 L (31.0-37.0) g/dL RDW 16.1 H (11.5-15.5) % Chloride 95 L (98-107) mmol/L Carbon Dioxide 37 H (22-30) mmol/L BUN 29 H (7-17) mg/dL Glucose 162 H (74-99) mg/dL Assessment and Plan Plan: Acute hypoxemic respiratory failure, likely secondary to COPD exacerbation. Acute acute exacerbation, improved compared to yesterday, reports that her overall respiratory status is back to her baseline Chronic hypoxemic respiratory failure on home O2 at 4 L. History of narcolepsy. History of sleep apnea syndrome, the patient has undergone a sleep study in the [facility] and currently she does not have a CPAP/BiPAP device. History of hypertension. History of obesity. History of ongoing tobacco use for the last 30 years. Plan Medically stable and the patient can be discharged home today. Patient can be discharged home on a combination of Symbicort and Spiriva as maintenance for COPD and a prednisone burst taper Patient has home oxygen Smoking cessation counseling was done. Outpatient polysomnography as the patient has difficulties with obstructive s leep apnea and she would benefit from CPAP/BiPAP treatment. Will continue to follow.
== END 2024-03-22 14:20 | disposition home or self-care (01) | DRG 140 ==
LOC: EC 21:13 → 4SSUR 22:20 → OBSVTOIN 03-20 11:25
PROVIDERS: ADMIT Internal Medicine; ATTEND Internal Medicine
PROC: 05HF33Z Insertion of Infusion Device into Left Cephalic Vein, Percutaneous Approach (ICD-10-PCS; principal; 2024-03-21 10:25)
DX: J44.1 Chronic obstructive pulmonary disease with (acute) exacerbation (principal); J96.21 Acute and chronic respiratory failure with hypoxia; K76.0 Fatty (change of) liver, not elsewhere classified; M06.9 Rheumatoid arthritis, unspecified; M32.9 Systemic lupus erythematosus, unspecified; I50.9 Heart failure, unspecified; E66.01 Morbid (severe) obesity due to excess calories; I11.0 Hypertensive heart disease with heart failure; G47.419 Narcolepsy without cataplexy; G47.33 Obstructive sleep apnea (adult) (pediatric); E27.49 Other adrenocortical insufficiency; T45.515A Adverse effect of anticoagulants, initial encounter; F17.200 Nicotine dependence, unspecified, uncomplicated; E87.5 Hyperkalemia; D72.829 Elevated white blood cell count, unspecified; F41.9 Anxiety disorder, unspecified; Z99.81 Dependence on supplemental oxygen; Z79.899 Other long term (current) drug therapy; Z79.51 Long term (current) use of inhaled steroids; Z88.0 Allergy status to penicillin; Z96.60 Presence of unspecified orthopedic joint implant
CPT/HCPCS: 36410; 76770; 76937; 80048; 80053; 83735; 84132; 84145; 85025; 85027; 85610; 85730; 93005; 93306; 94640; 94660; 94760; 99285